=== PATIENT | female | born 1960 | race Caucasian/White ===

== ENCOUNTER → 2019-08-19 16:47 | Outpatient (CLI) | payer BC, SELFPAY ==
--- NOTE | ~2019-08-19 | MM_ITS ---
EXAMINATION: MM screening [facility] BI w korey HISTORY: Screening mammogram TECHNIQUE: Craniocaudal and mediolateral oblique 3-D tomosynthesis images were obtained and synthetic 2-D images were generated. CAD analysis was submitted and interpreted. COMPARISON: 08/05/2018, 07/26/2017, 07/21/2016 BREAST PARENCHYMAL COMPOSITION: There are scattered areas of fibroglandular density. FINDINGS: RIGHT BREAST: There is no evidence of suspicious mass, calcification, or architectural distortion to suggest malignancy. There has been no significant interval change. LEFT BREAST: There is a subareolar mass of the of the breast. No suspicious calcification or architec tural distortion are identified. Stable benign-appearing calcification is present in the upper breast . IMPRESSION: 1. Subareolar left breast mass. 2. Additional mammographic views and possible breast ultrasound are recommended. BI-RADS Category 0: Incomplete: Needs additional imaging evaluation. Reviewed, dictated and finalized at location A. L DOCTOR IMPRESSION: 1. Subareolar left breast mass. 2. Additional mammographic views and possible breast ultrasound are recommended . BI-RADS Category 0: Incomplete: Needs additional imaging evaluation.
== END ==
PROVIDERS: Visit Provider Nurse Practitioner Obstetrics & Gynecology
DX: Z12.31 Encounter for screening mammogram for malignant neoplasm of breast (principal); R92.8 Other abnormal and inconclusive findings on diagnostic imaging of breast
CPT/HCPCS: 77063; 77067

== ENCOUNTER → 2019-09-02 08:02 | Outpatient (CLI) | payer BC, SELFPAY ==
--- NOTE | ~2019-09-02 | MMUS_ITS ---
EXAMINATION: MM diagnostic mammo unilat LT, US breast LT limited HISTORY: Subareolar left breast mass TECHNIQUE: Additional 3-D tomosynthesis images of the left breast were performed and synthetic 2-D im ages were generated. CAD analysis was submitted and interpreted. High resolution limited left breast ultrasound was performed. COMPARISON: 08/19/2019, 08/04/2018, 07/26/2017, 07/21/2016 FINDINGS: MAMMOGRAPHIC FINDINGS: There is a 7 mm round, obscured, equal density mass in the subareolar aspect of the slightly inner br east at the 9:00 location. No associated architectural distortion or suspicious calcification are see n. ULTRASOUND: There is a 6 mm cyst at the 9:00 location 1 cm from the nipple corresponding to the mammographic find ing in question. IMPRESSION: 1. No mammographic or sonographic evidence of malignancy. 2. Recommend routine screening mammography in one year. BI-RADS Category 2: Benign finding(s). Reviewed, dictated and finalized at location A. ORT PLANNING MANAGER IMPRESSION: 1. No mammographic or sonographic evidence of malignancy. 2. Recommend routine screening mammography in one year. BI-RADS Category 2: Benign finding(s).
== END ==
PROVIDERS: PCP Internal Medicine; Visit Provider Nurse Practitioner Obstetrics & Gynecology
DX: R92.8 Other abnormal and inconclusive findings on diagnostic imaging of breast (principal)
CPT/HCPCS: 76642; 77065

== ENCOUNTER → 2020-12-07 15:47 | Outpatient (CLI) | payer BC, SELFPAY ==
--- NOTE | ~2020-12-07 | MM_ITS ---
EXAMINATION: MM screening [facility] BI w korey HISTORY: Screening mammogram TECHNIQUE: Craniocaudal and mediolateral oblique 3-D tomosynthesis images were obtained and synthetic 2-D images were generated. CAD analysis was submitted and interpreted. COMPARISON: 09/02/2019 diagnostic left mammogram and limited left breast ultrasound 08/19/2019, 08/05/2018, 07/26/2017, bilateral digital screening mammogram examinations BREAST PARENCHYMAL COMPOSITION: There are scattered areas of fibroglandular density. FINDINGS: Bilateral asymmetric opacities are noted. Bilateral diagnostic mammography and breast ultra sound examination are recommended. IMPRESSION: 1. Bilateral mammographic opacities 2. Bilateral diagnostic mammography and bilateral breast ultrasound examination are recommended. BI-RADS Category 0: Incomplete: Needs additional imaging evaluation. Reviewed, dictated and finalized at location A.
== END ==
PROVIDERS: PCP Internal Medicine; Visit Provider Nurse Practitioner Obstetrics & Gynecology
DX: Z12.31 Encounter for screening mammogram for malignant neoplasm of breast (principal); R92.8 Other abnormal and inconclusive findings on diagnostic imaging of breast
CPT/HCPCS: 77063; 77067

== ENCOUNTER → 2021-01-06 08:19 | Outpatient (CLI) | payer BC, SELFPAY ==
--- NOTE | ~2021-01-06 | MMUS_ITS ---
EXAMINATION: MM diagnostic mammo BI, US breast BI complete HISTORY: Bilateral mammographic opacities reported on 12/07/2020 screening mammogram TECHNIQUE: Additional full field ML and additional spot 3-D tomosynthesis images of both breasts were performed and synthetic 2-D images were generated. CAD analysis was submitted and interpreted. High resolution complete bilateral breast ultrasound was performed. COMPARISON: 12/07/2020 bilateral digital screening mammogram 09/02/2019 left diagnostic mammogram and limited left breast ultrasound 08/19/2019, 08/05/2018, 07/26/2017, 07/21/2016 bilateral digital screening mammogram examinations BREAST PARENCHYMAL COMPOSITION: There are scattered areas of fibroglandular density. FINDINGS: MAMMOGRAPHIC FINDINGS: Stable circumscribed approximately 4.5 mm opacity is noted in the medial subareolar area of the left breast. There is mildly nodular fibroglandular stroma of both breasts, which may obscure small masses. Bilate ral complete breast ultrasound examination was performed. ULTRASOUND: Right breast: 1:00 3 cm from nipple: 2.5 x 3.4 mm cyst 9:00 4 cm from nipple: 3.9 x 4.7 mm cyst 9:00 3 cm from nipple: 2.5 x 3.3 mm cyst 10:00 4 cm from nipple: 1.5 x 3.6 mm parallel circumscribed hypoechoic or sonolucent lesion without s uspicious shadowing, likely benign Left breast: 1:00 5 cm from nipple: 1.8 x 2.6 mm probable small septated cyst 2:00 5 cm from nipple: 1.4 x 3.2 mm cyst 3:00 4 cm from nipple: 4 x 6 mm cluster of cysts without internal vascularity or posterior shadowing 5:00 5 cm from nipple: 3 x 3.2 mm cyst 5:00 7 cm from nipple: 2 x 2.9 mm irregular hypoechoic area with internal vascularity on color flow i maging; ultrasound-guided biopsy is recommended 9:00 subareolar area: 5.2 mm circumscribed cyst 10:00 3 cm from nipple: Irregular stellate approximately 5 mm hypoechoic area with posterior shadowin g; ultrasound-guided biopsy is recommended 11:00 3 cm from nipple: 2.3 x 4.8 mm cyst IMPRESSION: 1. 2 sonographically irregular areas of the left breast, at 5:00 7 cm from nipple and 10:00 3 cm from nipple 2. Ultrasound-guided biopsy of left breast 5:00 and 10:00 lesions is recommended BI-RADS category 4, suspicious findings. Reviewed, dictated and finalized at location A. IMPRESSION: 1. 2 sonographically irregular areas of the left breast, at 5:00 7 cm from nipp le and 10:00 3 cm from nipple 2. Ultrasound-guided biopsy of left breast 5:00 and 10:00 lesions is recommende d BI-RADS category 4, suspicious findings.
== END ==
PROVIDERS: Visit Provider Nurse Practitioner Obstetrics & Gynecology
DX: N60.02 Solitary cyst of left breast (principal); N60.01 Solitary cyst of right breast; N63.11 Unspecified lump in the right breast, upper outer quadrant; N63.22 Unspecified lump in the left breast, upper inner quadrant; N63.23 Unspecified lump in the left breast, lower outer quadrant
CPT/HCPCS: 76641; 77066

== ENCOUNTER → 2022-05-19 13:52 | Outpatient (CLI) | payer BC, SELFPAY ==
--- NOTE | ~2022-05-19 | DEXA_ITS ---
Bone Density Report Name: LALITA MARR Age: 62 Sex: Female Ethnicity: White Date of : 1960 Indication: osteopenia; postmenopausal Referring Provider: Delta, Nenita Nino Study: Bone densitometry was performed. Exam Date: May 19, 2022 Accession number: [id number] Bone Density: Region BMD T-score Z-score Classification AP Spine (L1-L4) 0.858 -1.7 0.0 Osteopenia Femoral Neck (Left) 0.577 -2.4 -1.0 Osteopenia Total Hip (Left) 0.774 -1.4 -0.2 Osteopenia Femoral Neck (Right) 0.556 -2.6 -1.2 Osteoporosis Total Hip (Right) 0.743 -1.6 -0.5 Osteopenia Total Hip Mean 0.759 -1.5 -0.4 Osteopenia World Health Organization criteria for BMD impression classify patients as: Normal (T-score at or above -1.0), Osteopenia (T-score between -1.0 and -2.5), or Osteoporosis (T-score at or below -2.5). 10-year Fracture Risk: FRAX not reported because: Some T-score for Spine Total or Hip Total or Femoral Neck at or below -2.5 Previous Exams: Region Exam Age BMD T-score BMD Change BMD Change Date g/cm2 vs Baseline vs Previous AP Spine(L1-L4) 05/19/2022 62 0.858 -1.7 -0.020 -0.014 08/05/2018 58 0.872 -1.6 -0.006 -0.053* 07/21/2016 56 0.925 -1.1 0.047* 0.047* 04/16/2014 54 0.878 -1.5 Total Hip(Left) 05/19/2022 62 0.774 -1.4 0.060* -0.007 08/05/2018 58 0.781 -1.3 0.067* 0.007 07/21/2016 56 0.774 -1.4 0.060* 0.060* 04/16/2014 54 0.714 -1.9 Total Hip(Right) 05/19/2022 62 0.743 -1.6 0.029* -0.014 08/05/2018 58 0.756 -1.5 0.043* -0.011 07/21/2016 56 0.768 -1.4 0.055* 0.055* 04/16/2014 54 0.713 -1.9 *Denotes significance at 95% confidence level, LSC for AP Spine = 0.022 g/cm2, LSC for Total Hip = 0.027 g/cm2 Clinical Information Provided by Patient: Has used the following medications: Vitamin D, Calcium, MTV Patient maximum height was 67 Menopause Age: 50 Does not regularly consume dairy products Drinks caffeinated beverages Onset of menses at age 10 Number of children 2 Impression: The patient has osteoporosis, based on the Right Femoral Neck T-score. No significant bone loss was observed. Discussion: INCREASED RISK OF FRACTURE. BONE DENSITY IS UNDESIRABLY LOW AT ONE OR MORE SKELETAL SITES, CONSISTENT WITH POSTMENOPAUSAL OSTEOPOROSIS. This patient
== END ==
PROVIDERS: PCP Internal Medicine; Visit Provider Nurse Practitioner Obstetrics & Gynecology
DX: Z78.0 Asymptomatic menopausal state (principal); M85.89 Other specified disorders of bone density and structure, multiple sites
CPT/HCPCS: 77080

== ENCOUNTER 2023-01-25 07:52 | Outpatient (CLI) | payer MEDICARE, SELFPAY ==
[2023-01-25 08:51] LABS: Free T4 Free Thyroxine 1.19 ng/mL (0.78-2.19)
== END 2023-01-25 07:53 | disposition home or self-care (01) ==
PROVIDERS: PCP Family Medicine; Visit Provider Internal Medicine Endocrinology, Diabetes & Metabolism
DX: E89.0 Postprocedural hypothyroidism (principal)
CPT/HCPCS: 36415; 84439; 84443

== ENCOUNTER 2023-02-01 11:59 | Outpatient (CLI) | payer MEDICARE, SELFPAY ==
[2023-02-01 13:13] LABS: Albumin Level 4.3 g/dL (3.5-5.1); Anion Gap 8 mmol/L (8-16); Blood Urea Nitrogen 17 mg/dL (7-17); Calcium 9.2 mg/dL (8.4-10.2); Carbon Dioxide 28 mmol/L (22-30); Chloride 103 mmol/L (98-107); Estimated Glomerular Filt Rate > 60; Glucose 89 mg/dL (65-110); Phosphorus 4.1 mg/dL (2.5-4.5); Potassium 4.3 mmol/L (3.4-5.0); Sodium 139 mmol/L (137-145)
[2023-02-01 13:24] LABS: Parathyroid Intact 50.1 pg/mL (7.5-53.5)
== END 2023-02-01 12:00 | disposition home or self-care (01) ==
LOC: ANHWCLAB 12:00
PROVIDERS: PCP Family Medicine; Visit Provider Internal Medicine Endocrinology, Diabetes & Metabolism
DX: M81.0 Age-related osteoporosis without current pathological fracture (principal); R79.89 Other specified abnormal findings of blood chemistry; E89.0 Postprocedural hypothyroidism
CPT/HCPCS: 36415; 80069; 82306; 83970

== ENCOUNTER 2024-02-12 07:50 | Outpatient (CLI) | payer MEDICARE, SELFPAY ==
[2024-02-12 09:57] LABS: Free T4 Free Thyroxine 1.33 ng/mL (0.78-2.19)
== END 2024-02-12 07:51 | disposition home or self-care (01) ==
PROVIDERS: PCP Family Medicine; Visit Provider Internal Medicine Endocrinology, Diabetes & Metabolism
DX: E89.0 Postprocedural hypothyroidism (principal)
CPT/HCPCS: 36415; 84439; 84443

== ENCOUNTER 2025-03-02 11:07 | Outpatient (CLI) | payer MEDICARE, SELFPAY ==
[2025-03-02 12:14] LABS: Free T4 Free Thyroxine 1.22 ng/dL (0.78-2.19)
--- OUTSIDE RECORDS SUMMARY | 2025-03-02 12:27 | XMS_ITS | Clinical Summary ---
Author Organization [facility] Address [address] [place] [id number] Care Team Providers Care Engagement Mgr Name Role Phone Guilherme Hickey MD Primary Care Provider Allergies No known active allergies Medications levothyroxine (SYNTHROID) 125 mcg tablet Take 125 mcg by mouth interior designer before breakfast Active loperamide (Imodium A-D) 2 mg tablet Take 2 mg by mouth 4 (four) times a day as needed for diarrhea Active calcium carbonate-vitam in D3 1,000 mg(2,500 mg)-800 unit tablet Take by mouth Active Active Problems No known active problems Encounters Date Type Department Care Team Description 02/24/2025 9:30 AM CDT Procedure visit [facility] Otolaryngology [address] [place] [address], [address] [place] [address] Anushka Rivera Au.D. Sensory hearing loss, bilateral (Primary Dx) from Last 3 Months Surgical History Surgery Date Site/Laterality Comments APPENDECTOMY TONSILECTOMY, ADENOIDECTOMY, BILATERAL MYRINGOTOMY AND TUBES Medical History Medical History Date Comments Osteoporosis Thyroid dysfunction Family History Medical History Relation Name Comments Colon cancer Father's Brother Breast cancer Father's Sister Cervical cancer Mother Colon cancer Other Pat Aunt Relation Name Status Comments Father's Brother Father's Sister Mother Other Pat Aunt Social History Tobacco Use Types Packs/Day Years Used Date Smoking Tobacco: Never Smokeless Tobacco: Never Alcohol Use Standard Drinks/Week Comments Yes 0 (1 standard drink = 0.6 oz pur e alcohol) socially Comments Unknown Sex and Gender Information Value Date Recorded Sex Assigned at Not on file Legal Sex Female 3:03 PM DIRECTOR BIOMEDICAL ENGINEERING Gender Identity Female 12/29/2019 9:26 AM CDT Sexual Orientation Not on file Obstetrics History Last Filed Vital Signs Vital Sign Reading Time Taken Comments Blood Pressure - - Pulse - - Temperature - - Respiratory Rate - - Oxygen Saturation - - Inhaled Oxygen Concentration - - Weight 64.9 kg (143 lb) 12/29/2019 9:41 AM CDT p t reported Height 170.2 cm (5' 7) 12/29/2019 9:41 AM CDT Body Mass Index 22.4 12/29/2019 9:41 AM CDT Plan of Treatment Health Maintenance Due Date Last Done Comments Colon Cancer Screening-Colonoscopy 1960 Depression Screening 1960 Fall Risk Assessment 1960 Hepatitis C Screening 1960 Osteoporosis Screening-Bone Density Scan 1960 Hepatitis B Screening 02/12/1976 Pneumococcal vaccine 65+ (1 of 1 - PCV) 02/12/2008 Zoster Vaccine (1 of 2) 02/12/2008 Well Visit 65+ 2023 Covid-19 Vaccine (3 - 2023-2 5 season) 2024 04/27/2021, 03/30/2021 Influenza Vaccine (#1) 2025 , 05/19/2019, 05/06/2018, Additional history exists Breast Cancer Screening-Mammogram 05/19/2025 05/19/2024, 05/07/2023, 03/13/2022, Additional history exists DTaP/Tdap/Td Vaccine (2 - Td or Tdap) 03/28/2029 03/28/2019, 11/28/2007 Procedures Procedure Name Priority Date/Time Associated Diagnosis Comments AUDBASE RESULTS 02/24/2025 9:23 AM CDT SCREENING MAMMOGRAM BILATERAL W WILLY Schedule Routine, Read Routine (OP Routine) 05/19/2024 8:37 AM DIRECTOR BIOMEDICAL ENGINEERING Screening mammogram, encounter for from Last 3 Months or Most Recently Relevant to Health Maintenance Results * AudBase Results (02/24/2025 9:23 AM CDT) us Provider Scanning AUDIOLOGY SERVICES ORDERABLES Final Result * Screening Mammogram Bilateral W Willy (05/19/2024 8:37 AM DIRECTOR BIOMEDICAL ENGINEERING) Anatomical Region Laterality Modality Breast Bilateral Mammography Narrative 05/20/2024 3:31 PM DIRECTOR BIOMEDICAL ENGINEERING Mammogram Technique: Bilateral Digital Breast Tomosynthesis, Bilateral C-view 2D Screening mammogram. Views obtained: bilateral craniocaudal and bilateral mediolateral oblique. Computer Aided Detection was performed. Mammogram Findings: The present examination has been compared to prior imaging studies performed at [facility] on 02/03/2021, 03/13/2022 and 05/07/2023. There are scattered areas of fibroglandular density. There is no suspicious abnormality in either breast. Impression: There is no mammographic evidence of malignancy. Annual screening mammography is recommended. OVERALL FINAL ASSESSMENT: BI-RADS CATEGORY 1: Negative. Procedure Note Morena Guillen MD - 05/20/2024 Mammogram Technique: Bilateral Digital Breast Tomosynthesis, Bilateral C-view 2D Screening mammogram. Views obtained: bilateral craniocaudal and bilateral mediolateral oblique. Computer Aided Detection was performed. Mammogram Findings: The present examination has been compared to prior imaging studies performed at [facility] on 02/03/2021, 03/13/2022 and 05/07/2023. There are scattered areas of fibroglandular density. There is no suspicious abnormality in either breast. Impression: There is no mammographic evidence of malignancy. Annual screening mammography is recommended. OVERALL FINAL ASSESSMENT: BI-RADS CATEGORY 1: Negative. us Self Screening Mammogram IMG MAMMO PROCEDURES Fi nal Result from Last 3 Months or Most Recently Relevant to Health Maintenance Insurance MEDICARE [facility] MEDICARE AARP Care Teams Engagement Mgr Relationship Specialty Start Date End Date Guilherme Hickey MD [address] [place] [id number] PCP - General Family Medicine 03/22/23
--- OUTSIDE RECORDS SUMMARY | 2025-03-02 12:27 | XMS_ITS | Encounter Summary ---
Author Organization [facility] Address [address] [place] [address] Care Team Providers Care Office Technologist Name Role Phone Kvng Gamboa MD Primary Care Provider U Raiza Saleh NP Primary Care Provider [phone] Niels Etienne NP Primary Care Provide r Saumya Burton MD Primary Care Provider [phone] Encounter Details Date Type Department Care Team (Late st Contact Info) Description 12/29/2015 Abstract [facility] [address] [place] [address] , Ted Zhang MD Social History Tobacco Use Types Packs/Day Years Used Date Smoking Tobacco: Never Assessed Comments Unknown Sex and Gender Information Value Date Recorded Sex Assigned at Not on file Legal Sex Female 10:30 PM CDT Gender Identity Female 10/17/2021 6:44 AM CDT Sexual Orientation Not on file documented as of this encounter Plan of Treatment Not on file documented as of this encounter Visit Diagnoses Not on filedocumented in this encounter Care Teams Office Technologist Relationship Specialty Start Date End Date Kvng Gamboa MD PCP - General 04/19/16 10/19/22 [place] [address], [address] [place] [address] PCP - General Nurse Practitioner Family 10/20/2208/17 [place] [address], [address] [place] [address] PCP - General NURSE PRACTITIONER ADULT HEALTH 09/07/23 01/31/24 [place] [address] [place] [address] PCP - General INTERNAL MEDICINE 02/01/24 documented as of this encounter
--- OUTSIDE RECORDS SUMMARY | 2025-03-02 12:27 | XMS_ITS | Clinical Summary ---
Author Organization [facility] Address [facility] [place] [address] Care Team Providers Care Career Development Counselor Name Role Phone Saumya Burton MD Primary Care Provider [phone] Allergies Active Allergy Reactions Criticality Noted Date Comments Methimazole Hives,Rash Low 05/18/2016 Medications calcium, elemental, 600 MG tablet Take 1 tablet (600 mg total) by mouth 2 (two) times daily. 01/11/2017 Active levothyroxine 112 MCG tablet Take 1 tablet (112 mcg total) by mouth every morning. 01/13/2020 Active Vitamin D, Cholecalciferol, 25 MCG (1000 UT) CapIndications:V itamin D deficiency Take 2,000 Units by mouth daily. 90 capsule 10/20/2021 Active Multiple Vitamin (MULTIVITAMIN ADULT) Tab Active polycarbophil (FIBER) 625 MG tablet Take 1 tablet (625 mg total) by mouth daily. Active dicyclomine (BENTYL) 10 MG capsuleIndicatio ns:Irritable bowel syndrome with diarrhea TAKE 1 CAPSULE(10 MG) BY MOUTH TWICE DAILY 60 capsule 3 05/31/2022 Active valACYclovir (VALTREX) 500 MG tabletIndication s:Fever blister Take 1 tablet (500 mg total) by mouth 3 (three) times daily. 21 tablet 3 07/14/2022 Active Active Problems Problem Noted Date Diagnosed Date Gallstones 05/18/2022 Overview (05/18/2022): Added automatically from request for surgery [id number] Screening for colon cancer 03/30/2022 Overview (03/30/2022): Added automatically from request for surgery [id number] Hx of colonic polyps 03/30/2022 Overview (03/30/2022): Added automatically from request for surgery [id number] Irritable bowel syndrome (IBS) 10/20/2020 Atypical chest pain 06/28/2020 Stress and adjustment reaction 06/28/2020 Acute left-sided thoracic back pain 04/01/2019 Fall, subsequent encounter 04/01/2019 Acute idiopathic gout of left ankle 02/04/2019 BMI 22.0-22.9, adult 01/28/2019 Foot pain, left 01/28/2019 Hypothyroidism 01/13/2016 Osteoporosis 01/13/2016 Toxic diffuse goiter 06/24/2014 Overview (01/28/2019): dr margarita jordan Other vitamin B12 deficiency anemia 07/12/2013 Overview (01/28/2019): on injections Resolved Problems Problem Noted Date Diagnosed Date Resolved Date Benign neoplasm of colon 07/16/2016 Overview (01/28/2019): Benign neoplasm of colon Immunizations Immunization Administration Dates Next Due Fluarix (IIV4) 04/18/2020 Fluzone 6 Months+ Quad (0.5 mL Prefilled Syringe) 05/19/2019 Fluzone High Dose - >Age 65 (Prefilled Syringe) 04/18/2020 Influenza Adult (Generic) 04/18/2020,,05/17/2017,2015,05/11/2015,06/04/2014 MODERNA COVID-19 (12+) MRNA, LNP-S, PF, 100 MCG/ 0.5 ML DOSE 04/27/2021,03/30/2021 Td 11/28/2007 Tdap (Adacel) 03/28/2019 Family History Medical History Relation Comments healthy Father Heart Mother Osteoarthritis Mother Relation Status Comments Father Mother Alive Social History Tobacco Use Types Packs/Day Years Used Date Smoking Tobacco: Never Smokeless Tobacco: Never Tobacco Cessation:Counseling Given: No Alcohol Use Standard Drinks/Week Comments No 0 (1 standard drink = 0.6 oz pur e alcohol) AUDIT-C Answer Date Recorded Frequency of Alcohol Consumption Never 01/28/2019 Average Number of Drinks Not on file 019 Frequency of Binge Drinking Not on file 01/13 PHQ-2 Answer Date Recorded Patient Health Questionnaire-2 Score 0 12/04/2022 Education Answer Date Recorded What is the highest level of school you have completed or the highest degree you have received? High school graduate 01/28/2019 Comments No Sex and Gender Information Value Date Recorded Sex Assigned at Not on file Legal Sex Female 10:30 PM CDT Gender Identity Female 10/17/2021 6:44 AM CDT Sexual Orientation Not on file Last Filed Vital Signs Vital Sign Reading Time Taken Comments Blood Pressure 98/63 12/04/2022 7:26 AM CDT Pulse 70 12/04/2022 7:26 AM CDT Temperature 36.7 C (98 F) 12/04/2022 7:26 AM CDT Respiratory Rate 18 12/04/2022 7:26 AM CDT Oxygen Saturation 100% 12/04/2022 7:26 AM CDT Inhaled Oxygen Concentration - - Weight 62.9 kg (138 lb 9.6 oz) 12/04/2022 7:26 A M CDT Height 170.2 cm (5' 7) 12/04/2022 7:26 AM CDT Body Mass Index 21.71 12/04/2022 7:26 AM CDT Plan of Treatment Health Maintenance Due Date Last Done Comments Hepatitis C 02/12/1976 Pneumococcal Vaccine: 50+ Years (1 of 1 - PCV) 02/12/2008 Zoster Vaccines (1 of 2) 02/12/2008 Annual Medicare Wellness Visit 2023 Mammogram Screening 03/13/2024 03/13/2022, 12/07/2020 COVID-19 Vaccine (3 - 2023-2 5 season) 2024 04/27/2021, 03/30/2021 DTaP, Tdap and Td Vaccines ( 2 - Td or Tdap) 03/28/2029 03/28/2019, 11/28/2007 Colorectal Cancer Screening Colonoscopy (10 Years) 06/12/2032 06/12/2022, 06/12/2022, 11/16/2017 RSV Immunization or 60+ Years (1 - 1-dose 75+ series) 2033 Dexa Scan (General) Completed 05/19/2022, 05/19/2022 Meningococcal B Vaccine Aged Out No l onger eligible based on patient's age to complete this topic Meningococcal Vaccine Aged Out No william gibson eligible based on patient's age to complete this topic RSV Immunizations Under 20 Months Aged Out No longer eligible b ased on patient's age to complete this topic Procedures Procedure Name Priority Date/Time Associated Diagnosis Comments COLONOSCOPY Routine 06/12/2022 11:59 AM BODY WORK AUTO TRIMMER BONE DENSITY GENERIC (SCAN ORDER) 05/19/2022 MAMMOGRAM GENERIC (SCAN ORDER) 03/13/2022 from Last 3 Months or Most Recently Relevant to Health Maintenance Results * BONE DENSITY GENERIC (05/19/2022) Anatomical Region Laterality Modality Other 05/19/2022 us Doc [facility] Scanned SCANNING Final Resu lt * MAMMOGRAM GENERIC (03/13/2022) Anatomical Region Laterality Modality Other 03/13/2022 Narrative 03/13/2022 Ordered by an unspecified provider. us Documents Scanned SCANNING Final Result * Colonoscopy (11/16/2017 12:00 AM CDT) 11/16/2017 11/16/2017 Narrative [facility] TO EPIC CONVERSION - 11/16/2017 12:00 AM CDT Documented hx of procedure Procedure Note , Generic Conversion, - 05/19/2018 Documented hx of procedure us Generic Conversion Md DAILEY GI PROCEDURE ORDERABLES Final Result [facility] TO EPIC CONVERSION from Last 3 Months or Most Recently Relevant to Health Maintenance Insurance MEDICARE [facility] Care Teams Career Development Counselor Relationship Specialty [place] [address] [facility] [address] [place] [id number] PCP - General INTERNAL MEDICINE 02/01/24
[2025-03-02 12:28] LABS: Thyroid Stimulating Hormone 2.110 uIU/mL (0.465-4.680)
--- OUTSIDE RECORDS SUMMARY | 2025-03-02 12:28 | XMS_ITS | Encounter Summary ---
Author Organization [facility] Address [facility] [place] [address] Care Team Providers Care Mapping Editor Name Role Phone Kvng Gamboa MD Primary Care Provider U Raiza Saleh NP Primary Care Provider [phone] Niels Etienne NP Primary Care Provide r Saumya Burton MD Primary Care Provider [phone] Encounter Details Date Type Department Care Team (Late st Contact Info) Description 11/21/2008 Abstract [facility] Conversion , Generic Conversion, Social History Tobacco Use Types Packs/Day Years [...] on filedocumented in this encounter Care Teams Mapping Editor Relationship Specialty Start Date End Date Kvng Gamboa MD PCP - General 04/19/16 10/19/22 [place] [address], [address] [place] [address] PCP - General Nurse Practitioner Family 10/20/2208/17 [place] [address] [address], [address] [place] [address] PCP - General NURSE PRACTITIONER ADULT HEALTH 09/07/23 01/31/24 [place] [address] [place] [address] PCP - General INTERNAL MEDICINE 02/01/24 documented as of this encounter
--- OUTSIDE RECORDS SUMMARY | 2025-03-02 12:28 | XMS_ITS | Encounter Summary ---
Author Organization [facility] Address [facility] [place] [address] Care Team Providers Care Portfolio Architect Name Role Phone Kvng Gamboa MD Primary Care Provider U Raiza Saleh NP Primary Care Provider [phone] Niels Etienne NP Primary Care Provide r Saumya Burton MD Primary Care Provider [phone] Encounter Details Date Type Department Care Team (Late st Contact Info) Description 07/22/2002 Abstract [facility] Conversion , Generic Conversion, Social History [...] on filedocumented in this encounter Care Teams Portfolio Architect Relationship Specialty Start Date End Date Kvng Gamboa MD PCP - General 04/19/16 10/19/22 [place] [address], [address] [place] [address] PCP - General Nurse Practitioner Family 10/20/2208/17 [place] [address], [address] [place] [address] PCP - General NURSE PRACTITIONER ADULT HEALTH 09/07/23 01/31/24 [place] [address] [place] [address] PCP - General INTERNAL MEDICINE 02/01/24 documented as of this encounter
== END 2025-03-02 11:08 | disposition home or self-care (01) ==
LOC: ANHLAB 11:08
PROVIDERS: PCP Family Medicine; Visit Provider Internal Medicine Endocrinology, Diabetes & Metabolism
DX: E03.9 Hypothyroidism, unspecified (principal)
CPT/HCPCS: 36415; 84439; 84443

== ENCOUNTER 2025-03-12 09:12 | Outpatient (CLI) | payer MEDICARE, SELFPAY ==
--- OUTSIDE RECORDS SUMMARY | 2025-03-12 09:17 | XMS_ITS | Encounter Summary ---
Author Organization [facility] Address [address] [place] [address] Care Team Providers Care Automation And Controls Manager Name Role Phone Kvng Gamboa MD Primary Care Provider U Raiza Saleh NP Primary Care Provider [phone] Niels Etienne NP Primary Care Provide r Saumya Burton MD Primary Care Provider [phone] Encounter Details Date Type Department Care Team (Late st Contact Info) Description 12/29/2015 Abstract [facility] [address] [place] [address] , Ted Zhang MD Social History Tobacco [...] on filedocumented in this encounter Care Teams Automation And Controls Manager Relationship Specialty Start Date End Date Kvng Gamboa MD PCP - General 04/19/16 10/19/22 [place] [address] [address], [address] [place] [address] PCP - General Nurse Practitioner Family 10/20/2208/17 [place] [address] [address], [address] [place] [address] PCP - General NURSE PRACTITIONER ADULT HEALTH 09/07/23 01/31/24 [place] [address] [place] [address] PCP - General INTERNAL MEDICINE 02/01/24 documented as of this encounter
--- OUTSIDE RECORDS SUMMARY | 2025-03-12 09:17 | XMS_ITS | Clinical Summary ---
Author Organization [facility] Address [facility] [place] [address] Care Team Providers Care Registered Nurse Cardiovascular Icu Name Role Phone Saumya Burton MD Primary Care Provider [phone] Allergies Active Allergy Reactions Criticality Noted Date [...] (05/18/2022): Added automatically from request for surgery [id number] Screening for colon cancer 03/30/2022 Overview (03/30/2022): Added automatically from request for surgery [id number] Hx of colonic polyps 03/30/2022 Overview (03/30/2022): Added automatically from request for surgery [id number] Irritable bowel syndrome (IBS) 10/20/2020 Atypical chest [...] Diagnosis Comments COLONOSCOPY Routine 06/12/2022 11:59 AM TRANSPLANTER ORCHID BONE DENSITY GENERIC (SCAN ORDER) 05/19/2022 MAMMOGRAM [...] Recently Relevant to Health Maintenance Insurance MEDICARE [facility] Care Teams Registered Nurse Cardiovascular Icu Relationship Specialty [place] [address] [facility] [address] [place] [address] PCP - General INTERNAL MEDICINE 02/01/24
--- OUTSIDE RECORDS SUMMARY | 2025-03-12 09:17 | XMS_ITS | Clinical Summary ---
Author Organization [facility] Address [address] [place] [id number] Care Team Providers Care Plastic Sheets Supervisor Name Role Phone Guilherme Hickey MD Primary Care Provider [phone] Allergies No known active allergies Medications levothyroxine (SYNTHROID) 125 mcg tablet Take 125 mcg by mouth basketball scout before breakfast Active loperamide (Imodium A-D) 2 mg tablet Take 2 mg by mouth 4 (four) times a day as needed for diarrhea Active calcium carbonate-vitam in D3 1,000 mg(2,500 mg)-800 unit tablet Take by mouth Active Active Problems No known active problems Encounters Date Type Department Care Team Description 02/24/2025 9:30 AM CDT Procedure visit [facility] Medicine Otolaryngology [address] [place] [address], [address] [place] [address] Anushka Rivera Au.D. Sensory hearing [...] on file Legal Sex Female 3:03 PM BANK CREDIT CARD COLLECTION CLERK Gender Identity Female 12/29/2019 9:26 AM CDT [...] Read Routine (OP Routine) 05/19/2024 8:37 AM BANK CREDIT CARD COLLECTION CLERK Screening mammogram, encounter for from Last 3 Months or Most Recently Relevant to Health Maintenance Results * AudBase Results (02/24/2025 9:23 AM CDT) us Provider Scanning AUDIOLOGY SERVICES ORDERABLES Final Result * Screening Mammogram Bilateral W Willy (05/19/2024 8:37 AM BANK CREDIT CARD COLLECTION CLERK) Anatomical Region Laterality Modality Breast Bilateral Mammography Narrative 05/20/2024 3:31 PM BANK CREDIT CARD COLLECTION CLERK Mammogram Technique: Bilateral Digital Breast Tomosynthesis, Bilateral C-view 2D Screening mammogram. Views obtained: bilateral craniocaudal and bilateral mediolateral oblique. Computer Aided Detection was performed. Mammogram Findings: The present examination has been compared to prior imaging studies performed at [facility] on 02/03/2021, 03/13/2022 and 05/07/2023. There [...] compared to prior imaging studies performed at [facility] on 02/03/2021, 03/13/2022 and 05/07/2023. There [...] Recently Relevant to Health Maintenance Insurance MEDICARE [facility] MEDICARE [employer] Care Teams Plastic Sheets Supervisor Relationship Specialty Start Date End Date Guilherme Hickey MD [address] [place] [address] PCP - General Family Medicine 03/22/23
--- OUTSIDE RECORDS SUMMARY | 2025-03-12 09:18 | XMS_ITS | Encounter Summary ---
Author Organization [facility] Address [facility] [place] [address] Care Team Providers Care Network Solutions Architect Name Role Phone Kvng Gamboa MD Primary Care Provider U Raiza Saleh NP Primary Care Provider [phone] Niels Etienne NP Primary Care Provide r Saumya Burton MD Primary Care Provider [phone] Encounter Details Date Type Department Care Team (Late st Contact Info) Description 07/22/2002 Abstract [facility] Conversion , Generic Conversion, Social [...] on filedocumented in this encounter Care Teams Network Solutions Architect Relationship Specialty Start Date End Date Kvng Gamboa MD PCP - General 04/19/16 10/19/22 [place] [address] [address], [address] [place] [address] PCP - General Nurse Practitioner Family 10/20/2208/17 [place] [address] [address], [address] [place] [address] PCP - General NURSE PRACTITIONER ADULT HEALTH 09/07/23 01/31/24 [place] [address] [place] [address] PCP - General INTERNAL MEDICINE 02/01/24 documented as of this encounter
--- OUTSIDE RECORDS SUMMARY | 2025-03-12 09:18 | XMS_ITS | Encounter Summary ---
Author Organization [facility] Address [facility] [place] [address] Care Team Providers Care Supervisor Multifocal Lens Name Role Phone Kvng Gamboa MD Primary Care Provider U Raiza Saleh NP Primary Care Provider [phone] Niels Etienne NP Primary Care Provide r Saumya Burton MD Primary Care Provider [phone] Encounter Details Date Type Department Care Team (Late st Contact Info) Description 11/21/2008 Abstract [facility] Clinics Conversion , Generic Conversion, Social [...] on filedocumented in this encounter Care Teams Supervisor Multifocal Lens Relationship Specialty Start Date End Date Kvgn Gamboa MD PCP - General 04/19/16 10/19/22 [place] [address] [address], [address] [place] [address] PCP - General Nurse Practitioner Family 10/20/2208/17 [place] [address] [address], [address] [place] [address] PCP - General NURSE PRACTITIONER ADULT HEALTH 09/07/23 01/31/24 [place] [address] [place] [address] PCP - General INTERNAL MEDICINE 02/01/24 documented as of this encounter
[2025-03-12 10:39] LABS: Alanine Aminotransferase 28 U/L (6-35); Albumin Level 4.3 g/dL (3.5-5.1); Alkaline Phosphatase 125 U/L (38-126); Anion Gap 6 mmol/L (4-12); Aspartate Amino Transferase 41 U/L (14-36); Bilirubin,Total 0.8 mg/dL (0.2-1.3); Blood Urea Nitrogen 19 mg/dL (7-17); Calcium 9.4 mg/dL (8.4-10.2); Carbon Dioxide 28 mmol/L (22-30); Chloride 105 mmol/L (98-107); Cholesterol 215 mg/dL (0-200); Estimated Glomerular Filt Rate > 60; Glucose 83 mg/dL (65-110); HDL Direct 74 mg/dL; Potassium 4.2 mmol/L (3.4-5.0); Sodium 139 mmol/L (137-145); Total Protein 7.4 g/dL (6.3-8.2); Triglycerides 68 mg/dL (<150)
== END 2025-03-12 09:13 | disposition home or self-care (01) ==
PROVIDERS: PCP Family Medicine
DX: E89.0 Postprocedural hypothyroidism (principal); M81.0 Age-related osteoporosis without current pathological fracture; R79.89 Other specified abnormal findings of blood chemistry
CPT/HCPCS: 36415; 80053; 80061; 82306

== ENCOUNTER 2025-03-17 08:19 | Outpatient (CLI) | payer MEDICARE, SELFPAY ==
--- NOTE | ~2025-03-17 | US_ITS ---
US soft tissue chest 03/17/2025 08:48 Indication: Probable lump left upper quadrant near the chest wall Procedure: Soft tissue ultrasound of the left upper quadrant Comparison: No prior studies for comparison. Findings: Normal heterogeneous soft tissues without focal mass or fluid collection. Impression: 1: Normal soft tissue ultrasound in the area of palpable concern. Reviewed, dictated and finalized at location O. Impression: 1: Normal soft tissue ultrasound in the area of palpable concern.
--- OUTSIDE RECORDS SUMMARY | 2025-03-17 08:26 | XMS_ITS | Clinical Summary ---
Author Organization [facility] Address [address] [place] [address] Care Team Providers Care Apprentice Machinist Outside Name Role Phone Guilherme Hickey MD Primary Care Provider [phone] Allergies No known active allergies Medications levothyroxine (SYNTHROID) 125 mcg tablet Take 125 mcg by mouth cook seafood before breakfast Active loperamide (Imodium A-D) 2 mg tablet Take 2 mg by mouth 4 (four) times a day as needed for diarrhea Active calcium carbonate-vitam in D3 1,000 mg(2,500 mg)-800 unit tablet Take by mouth Active Active Problems No known active problems Encounters Date Type Department Care Team Description 02/24/2025 9:30 AM CDT Procedure visit [facility] Medicine Otolaryngology [address] [place] [address], [address] [place] [address] Anushka Rivera Au.D. Sensory hearing [...] on file Legal Sex Female 3:03 PM BOARDING ROOM FIXER Gender Identity Female 12/29/2019 9:26 AM CDT [...] Visit 65+ 2023 Covid-19 Vaccine (3 - 2024-2 6 season) 2025 04/27/2021, 03/30/2021 Influenza Vaccine (#1) 2025 , 05/19/2019, 05/06/2018, Additional history exists Breast Cancer Screening-Mammogram 05/19/2025 05/19/2024, 05/07/2023, 03/13/2022, Additional history exists DTaP/Tdap/Td Vaccine (2 - Td or Tdap) 03/28/2029 03/28/2019, 11/28/2007 Procedures Procedure Name Priority Date/Time Associated Diagnosis Comments AUDBASE RESULTS 02/24/2025 9:23 AM CDT SCREENING MAMMOGRAM BILATERAL W WILLY Schedule Routine, Read Routine (OP Routine) 05/19/2024 8:37 AM BOARDING ROOM FIXER Screening mammogram, encounter for from Last 3 Months or Most Recently Relevant to Health Maintenance Results * AudBase Results (02/24/2025 9:23 AM CDT) us Provider Scanning AUDIOLOGY SERVICES ORDERABLES Final Result * Screening Mammogram Bilateral W Willy (05/19/2024 8:37 AM BOARDING ROOM FIXER) Anatomical Region Laterality Modality Breast Bilateral Mammography Narrative 05/20/2024 3:31 PM BOARDING ROOM FIXER Mammogram Technique: Bilateral Digital Breast Tomosynthesis, Bilateral C-view 2D Screening mammogram. Views obtained: bilateral craniocaudal and bilateral mediolateral oblique. Computer Aided Detection was performed. Mammogram Findings: The present examination has been compared to prior imaging studies performed at [facility] on 02/03/2021, 03/13/2022 and 05/07/2023. There are [...] compared to prior imaging studies performed at [facility] on 02/03/2021, 03/13/2022 and 05/07/2023. There are scattered areas of fibroglandular density. There is no suspicious abnormality in either breast. Impression: There is no mammographic evidence of malignancy. Annual screening mammography is recommended. OVERALL FINAL ASSESSMENT: BI-RADS CATEGORY 1: Negative. us Self Screening Mammogram IMG MAMMO PROCEDURES Fi nal Result from Last 3 Months or Most Recently Relevant to Health Maintenance Insurance MEDICARE [facility] MEDICARE AARP Care Teams Apprentice Machinist Outside Relationship Specialty Start Date End Date Guilherme Hickey MD [address] [place] [address] PCP - General Family Medicine 03/22/23
--- OUTSIDE RECORDS SUMMARY | 2025-03-17 08:26 | XMS_ITS | Clinical Summary ---
Author Organization [facility] Address [facility] [place] [address] Care Team Providers Care Cutter Apprentice Hand Name Role Phone Saumya Burton MD Primary Care Provider [phone] Allergies Active Allergy Reactions Criticality Noted Date [...] (05/18/2022): Added automatically from request for surgery [id number] Screening for colon cancer 03/30/2022 Overview (03/30/2022): Added automatically from request for surgery [id number] Hx of colonic polyps 03/30/2022 Overview (03/30/2022): Added automatically from request for surgery [id number] Irritable bowel syndrome (IBS) 10/20/2020 Atypical chest [...] Diagnosis Comments COLONOSCOPY Routine 06/12/2022 11:59 AM LAB ASSOCIATE BONE DENSITY GENERIC (SCAN ORDER) 05/19/2022 MAMMOGRAM [...] Recently Relevant to Health Maintenance Insurance MEDICARE [facility] Care Teams Cutter Apprentice Hand Relationship Specialty [place] [address] [facility] [address] [place] [address] PCP - General INTERNAL MEDICINE 02/01/24
--- OUTSIDE RECORDS SUMMARY | 2025-03-17 08:26 | XMS_ITS | Encounter Summary ---
Author Organization [facility] Address [facility] [place] [address] Care Team Providers Care Flare Maker Name Role Phone Kvng Gamboa MD Primary Care Provider U Raiza Saleh NP Primary Care Provider [phone] Niels Etienne NP Primary Care Provide r Saumya Burton MD Primary Care Provider [phone] Encounter Details Date Type Department Care Team (Late st Contact Info) Description 11/21/2008 Abstract [facility] Clinics Conversion , Generic Conversion, Social [...] on filedocumented in this encounter Care Teams Flare Maker Relationship Specialty Start Date End Date Kvng Gamboa MD PCP - General 04/19/16 10/19/22 [place] [address] [address], [address] [place] [address] PCP - General Nurse Practitioner Family 10/20/2208/17 [place] [address] [address], [address] [place] [address] PCP - General NURSE PRACTITIONER ADULT HEALTH 09/07/23 01/31/24 [place] [address] [place] [address] PCP - General INTERNAL MEDICINE 02/01/24 documented as of this encounter
--- OUTSIDE RECORDS SUMMARY | 2025-03-17 08:26 | XMS_ITS | Encounter Summary ---
Author Organization [facility] Address [facility] [place] [address] Care Team Providers Care Wire Weaving Loom Setter Name Role Phone Kvng Gamboa MD Primary Care Provider U Raiza Saleh NP Primary Care Provider [phone] Niels Etienne NP Primary Care Provide r Saumya Burton MD Primary Care Provider [phone] Encounter Details Date Type Department Care Team (Late st Contact Info) Description 07/22/[address] [facility] Clinics Conversion , Generic Conversion, Social [...] on filedocumented in this encounter Care Teams Wire Weaving Loom Setter Relationship Specialty Start Date End Date Kvng Gamboa MD PCP - General 04/19/16 10/19/22 [place] [address] [address], [address] [place] [address] PCP - General Nurse Practitioner Family 10/20/2208/17 [place] [address] [address], [address] [place] [address] PCP - General NURSE PRACTITIONER ADULT HEALTH 09/07/23 01/31/24 [place] [address] [place] [address] PCP - General INTERNAL MEDICINE 02/01/24 documented as of this encounter
--- OUTSIDE RECORDS SUMMARY | 2025-03-17 08:26 | XMS_ITS | Encounter Summary ---
Author Organization [facility] Address [address] [place] [address] Care Team Providers Care Nurse Charge Rn Name Role Phone Kvng Gamboa MD Primary Care Provider U Raiza Saleh NP Primary Care Provider [phone] Niels Etienne NP Primary Care Provide r Saumya Burton MD Primary Care Provider [phone] Encounter Details Date Type Department Care Team (Late st Contact Info) Description 12/29/2015 Abstract [facility] [address] [place] [address] , Ted Zhang MD Social History Tobacco [...] on filedocumented in this encounter Care Teams Nurse Charge Rn Relationship Specialty Start Date End Date Kvng Gamboa MD PCP - General 04/19/16 10/19/22 [place] [address] [address], [address] [place] [address] PCP - General Nurse Practitioner Family 10/20/2208/17 [place] [address] [address], [address] [place] [address] PCP - General NURSE PRACTITIONER ADULT HEALTH 09/07/23 01/31/24 [place] [address] [place] [address] PCP - General INTERNAL MEDICINE 02/01/24 documented as of this encounter
== END 2025-03-17 08:20 | disposition home or self-care (01) ==
PROVIDERS: PCP Family Medicine
DX: R22.2 Localized swelling, mass and lump, trunk (principal)
CPT/HCPCS: 76604